=== PATIENT | male | born 1985 | race African-American/Black ===

== ENCOUNTER 2016-11-29 23:36 | Emergency (ER) | payer OTHER ==
[2016-11-29 23:46] VITALS: RESP 20
[2016-11-29] MEDS ORDERED: DIPH,PERTUS(ACELL)TETVAC-LF 0.5 ML VIAL IM ONE (23:56)
--- NOTE | 2016-11-30 00:05 | ED ---
Wound/Laceration HPI - General Chief Complaint: Wound/Laceration Stated Complaint: Finger Laceration Time Seen by Provider: 11/29/16 23:54 Source: patient, RN notes reviewed Mode of arrival: ambulatory Limitations: no limitations - History of Present Illness Initial Comments: Patient is 22-year-old male presents emergency department with chief complaint of laceration over his right middle finger. Patient reports that the laceration is over the proximal interphalangeal joint. He states that he cut his finger on it trying to close a switch blade. He states it got full range of motion of the finger. He does not know the status of his tetanus vaccination. He reports he is right-handed. Patient reports that he try to stop the bleeding at home however continue to persist especially that over the joint every time he opens and closes finger. Be evaluated patient does have a blood pressure of 210/110. Patient does report a family history of high blood pressure he denies any specific symptoms including headache or chest pain. He reports that his ever been diagnosed with high blood pressure. Patient denies any recent fever, chills, shortness of breath, chest pain, back pain, abdominal pain, nausea vomiting, numbness or tingling, dysuria or hematuria, constipation or diarrhea, headaches or visual changes, or any other current symptoms - Related Data Previous Rx's Medication Instructions Recorded amLODIPine [Norvasc] 5 mg PO DAILY #15 tab 11/30/16 Allergies Allergy/AdvReac Type Severity Reaction Status Date / Time No Known Allergies Allergy Verified 11/29/16 23:46 Review of Systems ROS Statement: Those systems with pertinent positive or pertinent negative responses have been documented in the HPI. ROS Other: All systems not noted in ROS Statement are negative. Past Medical History Past Medical History: No Reported History History of Any Multi-Drug Resistant Organisms: None Reported Past Surgical History: No Surgical Hx Reported Past Psychological History: No Psychological Hx Reported Smoking Status: Current every day smoker Past Alcohol Use History: Occasional Past Drug Use History: Marijuana General Exam - General Exam Comments Initial Comments: Patient is a well-appearing 30-year-old male. Limitations: no limitations General appearance: alert, in no apparent distress Head exam: Present: atraumatic, normocephalic, normal inspection Eye exam: Present: normal appearance, PERRL, EOMI. Absent: scleral icterus, conjunctival injection, periorbital swelling ENT exam: Present: normal exam, normal oropharynx, mucous membranes moist, TM's normal bilaterally Neck exam: Present: normal inspection. Absent: tenderness, meningismus, lymphadenopathy Respiratory exam: Present: normal lung sounds bilaterally. Absent: respiratory distress, wheezes, rales, rhonchi, stridor Cardiovascular Exam: Present: regular rate, normal rhythm, normal heart sounds. Absent: systolic murmur, diastolic murmur, rubs, gallop, clicks GI/Abdominal exam: Present: soft, normal bowel sounds. Absent: distended, tenderness, guarding, rebound, rigid Extremities exam: Present: normal inspection, full ROM, normal capillary refill. Absent: tenderness, pedal edema, joint swelling, calf tenderness Right Elbow exam: Present: normal inspection, full ROM Forearm Wrist exam: Present: normal inspection, full ROM Hand Wrist exam: Present: full ROM. Absent: normal inspection ( is a 1 cm laceration over the right middle proximal digit.) Hand L/R Back: 1 - laceration Back exam: Present: normal inspection Neurological exam: Present: alert, oriented X3, CN II-XII intact Psychiatric exam: Present: normal affect, normal mood Skin exam: Present: warm, dry, intact, normal color. Absent: rash Course Vital Signs 11/29/16 11/30/16 11/30/16 23:42 00:05 00:59 Temperature 97.6 F 96.8 F L 98.2 F Pulse Rate 84 88 88 Respiratory 20 20 20 Rate Blood Pressure 210/111 166/114 166/100 O2 Sat by Pulse 100 98 Oximetry Procedures - Laceration Laceration #1 Consent Obtained: verbal consent Site: hand (Over middle distal phalanx.) Size (cm): 1 Description: linear Depth: simple, single layer Anesthetic Used: benzocaine 0.25% Anesthesia Technique: local infiltration Pre-repair: wound explored Type of Sutures: nylon Size of Sutures: 5-0 Number of Sutures: 3 Technique: simple, interrupted Patient Tolerated Procedure: well, no complications Medical Decision Making - Medical Decision Making Patient is 30-year-old male presenting to the EC with chief complaint laceration over his right posterior distal middle finger after cutting it on a switch blade. He has full range of motion of the finger. Patient was given an updated tetanus vaccination. Patient is found to have a high blood pressure of 210/110. Patient has a positive family history for high blood pressure but denies it being diagnosed with a patient denies any specific complaints including vision changes, headache or chest pains. Patient was given 1 mg of Catapres. I advised patient needs follow-up with a primary care provider regards to his blood pressure , he promises to do so within the next week. Patient will be started on Norvasc. Patient was given3 sutures on the finger. Patient understands return parameters and to monitor for any signs of infection. Patient will follow up with primary care regards to remove the sutures as well as following up with his hypertension. Return parameters discussed. Patient understands treatment plan and will comply. Disposition Clinical Impression: Hypertension, Finger laceration Disposition: HOME SELF-CARE Condition: Good Instructions: Care For Your Stitches (ED), Hypertension (ED) Additional Instructions: Please return to the emergency room in 7-10 days to have sutures removed. Please leave wound covered for the first 24-48 hours and then leave open to air after that time. Please use clean soap and water to clean the suture area to prevent scabbing over the top of your sutures. Please watch for any signs of infection which may include but not limited to increased pain, swelling, redness , fever or chills. Please return to the emergency room if any signs of infection do occur. Please return to the emergency room for any other concerns or complications. Follow-up with primary care provider regards to high blood pressure. Take high blood pressure medication as prescribed for the next few days until little follow-up with primary care physician. Prescriptions: amLODIPine [Norvasc] 5 mg PO DAILY #15 tab Referrals: Eve Stahl MD [REFERRING] - 1-2 days Time of Disposition: 00:32
[2016-11-30] MEDS ORDERED: cloNIDine HCL 0.1 MG TAB PO STA (00:08)
[2016-11-30 00:53] VITALS: PULSE 88
[2016-11-30 01:01] VITALS: BP 166/100; TEMP 98.2
== END 2016-11-30 00:59 | disposition home or self-care (01) ==
LOC: EC 23:36
DX: S61.212A Laceration without foreign body of right middle finger without damage to nail, initial encounter (principal); I10 Essential (primary) hypertension; F17.200 Nicotine dependence, unspecified, uncomplicated; Z23 Encounter for immunization; W26.0XXA Contact with knife, initial encounter
CPT/HCPCS: 12001; 90471; 90715; 99282

== ENCOUNTER 2019-12-19 20:01 | Emergency (ER) | payer OTHER ==
[2019-12-19 20:17] VITALS: RESP 18; TEMP 98.6
[2019-12-19] MEDS ORDERED: KETOROLAC 60 MG/2 ML VIAL IM STA (21:26)
[2019-12-19] MEDS ORDERED: CYCLOBENZAPRINE 10 MG TAB PO STA (21:27)
--- NOTE | 2019-12-19 21:58 | XR ---
Cervical spine HISTORY: Neck pain 5 views of the cervical spine Cervical vertebral bodies show preserved height, alignment, and bone mineralization. There is multile barber spondylosis. Some loss of disc height present at the intervertebral levels C4-5, C5-6. Prevertebr al soft tissues are normal. Spinal curvature is noted in thoracic spine. Oblique images limited for e valuation for foraminal encroachment on the left, no foraminal encroachment noted on the right. Rudim entary cervical ribs noted at C7. IMPRESSION: Degenerative disc disease, scoliosis.
--- NOTE | 2019-12-19 22:27 | ED ---
Neck Injury/Pain HPI - General Chief Complaint: Neck Pain/Injury Stated Complaint: Neck pain Time Seen by Provider: 12/19/19 20:20 Mode of arrival: ambulatory Limitations: no limitations - History of Present Illness Initial Comments: The patient is a 33-year-old male with past medical history of hypertension who presents to the emergency room with reported neck pain. He states the pain has been present for the past week. He states he woke up one morning with the pain acutely. He thought that he had slept wrong however states that the pain has been persistent. It is midline neck pain at C7 which is worse with rotation of his head. He states he feels as if he needs to adjust his neck however he has been unable to do this. He denies any chiropractic manipulations. He denies any headaches or visual changes. No unilateral numbness or weakness. No radiating pain down into his extremities. He denies any blunt head or neck trauma. No recent falls or car accidents. He denies any fevers or chills. No history of IV drug use. There is no issues with confusion or slurred speech per friend at bedside. He has not taken any medications at home for his symptoms. There are no other alleviating, precipitating or modifying factors - Related Data Previous Rx's Medication Instructions Recorded amLODIPine [Norvasc] 5 mg PO DAILY #15 tab 11/30/16 Cyclobenzaprine [Flexeril] 10 mg PO TID PRN #15 tab 12/19/19 Ibuprofen [Motrin] 600 mg PO Q8HR PRN #20 tab 12/19/19 Allergies Allergy/AdvReac Type Severity Reaction Status Date / Time No Known Allergies Allergy Verified 11/29/16 23:46 Review of Systems ROS Statement: Those systems with pertinent positive or pertinent negative responses have been documented in the HPI. ROS Other: All systems not noted in ROS Statement are negative. Past Medical History Past Medical History: No Reported History History of Any Multi-Drug Resistant Organisms: None Reported Past Surgical History: No Surgical Hx Reported Past Psychological History: No Psychological Hx Reported Smoking Status: Current every day smoker Past Alcohol Use History: Occasional Past Drug Use History: Marijuana General Exam Limitations: no limitations General appearance: alert, in no apparent distress Head exam: Present: atraumatic, normocephalic, normal inspection Eye exam: Present: normal appearance, PERRL, EOMI. Absent: scleral icterus, conjunctival injection, periorbital swelling ENT exam: Present: normal exam, mucous membranes moist Neck exam: Present: tenderness (at c7) Respiratory exam: Present: normal lung sounds bilaterally. Absent: respiratory distress, wheezes, rales, rhonchi, stridor Cardiovascular Exam: Present: regular rate, normal rhythm, normal heart sounds. Absent: systolic murmur, diastolic murmur, rubs, gallop, clicks Extremities exam: Present: normal inspection, full ROM, normal capillary refill, other (equal wind up operator strength). Absent: tenderness, pedal edema, joint swelling, calf tenderness Neurological exam: Present: alert, oriented X3, CN II-XII intact Course Vital Signs 12/19/19 12/19/19 20:16 22:56 Temperature 98.6 F Pulse Rate 89 80 Respiratory 18 18 Rate Blood Pressure 136/86 116/78 O2 Sat by Pulse 99 100 Oximetry Medical Decision Making - Medical Decision Making Upon arrival the patient was placed into room 3. A thorough history and physical exam was performed. The patient does have tenderness to palpation of the C7 spinous process as well as the paraspinal muscles bilaterally. I did recommend an x-ray because of the patient's midline neck pain. He denies any recent trauma. There is no neurologic deficit. The patient was given a dose of Toradol and Flexeril. Cervical spine x-ray does demonstrate degenerative disc disease and scoliosis. There are rudimentary cervical ribs noted. I did reevaluate the patient he states that he has had great improvement in his pain. He feels comfortable going home at this time. I did provide the patient with a prescription for Flexeril and Motrin. He is taking his medications as directed on a full stomach. He is to use warm compresses to the site. He needs to follow up with his primary care doctor for further evaluation. Return to the emergency room for any new or worsening symptoms. The patient was in agreement with the treatment plan and he was discharged home in stable condition Disposition Clinical Impression: Cervical pain (neck) Disposition: HOME SELF-CARE Condition: Stable Instructions (If sedation given, give patient instructions): Cervical Strain (ED) Additional Instructions: Please follow-up with your primary care doctor in 2 to 4 days. Return to the emergency room for any new or worsening symptoms Prescriptions: Cyclobenzaprine [Flexeril] 10 mg PO TID PRN #15 tab PRN Reason: Muscle Spasm Ibuprofen [Motrin] 600 mg PO Q8HR PRN #20 tab PRN Reason: Pain Is patient prescribed a controlled substance at d/c from ED?: No Referrals: None,Stated [Primary Care Provider] - 1-2 days Carmina Tian DO [Doctor of Osteopathic Medicine] - 1-2 days Time of Disposition: 22:27
[2019-12-19 22:57] VITALS: BP 116/78; PULSE 80
== END 2019-12-19 22:57 | disposition home or self-care (01) ==
LOC: EC 20:01
DX: M50.30 Other cervical disc degeneration, unspecified cervical region (principal); M41.82 Other forms of scoliosis, cervical region; Q76.6 Other congenital malformations of ribs; I10 Essential (primary) hypertension; F17.200 Nicotine dependence, unspecified, uncomplicated
CPT/HCPCS: 96372; 99283; 72050; J1885

== ENCOUNTER 2023-10-12 18:21 | Emergency (ER) | payer OTHER ==
[2023-10-12 18:48] VITALS: TEMP 98.7
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
--- NOTE | 2023-10-12 19:48 | XR ---
EXAMINATION TYPE: XR ribs LT w pa chest xray DATE OF EXAM: 10/12/2023 7:02 PM CLINICAL INDICATION:Male, 37 years old with history of pain; COMPARISON: None TECHNIQUE: XR ribs LT w pa chest xray; Frontal and oblique views of the ribs with frontal chest radio graph. FINDINGS: The ribs have a normal appearance. No evidence of fracture. Overall, the lungs are clear. The cardiac silhouette is normal in size. The remaining osseous structures are intact. IMPRESSION: No acute osseous pathology.
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
[2023-10-12] MEDS ORDERED: CEPHALEXIN 500 MG CAP PO STA (23:48)
[2023-10-12] MEDS ORDERED: CEPHALEXIN 500MG STARTER PACK 4 CAP BTL PO STA (23:48)
[2023-10-13 00:25] VITALS: BP 186/124; PULSE 88; RESP 20
== END 2023-10-12 23:54 | disposition home or self-care (01) ==
LOC: EC 18:21
DX: S02.2XXA Fracture of nasal bones, initial encounter for closed fracture (principal); S02.31XA Fracture of orbital floor, right side, initial encounter for closed fracture; S20.219A Contusion of unspecified front wall of thorax, initial encounter; F17.200 Nicotine dependence, unspecified, uncomplicated; F12.90 Cannabis use, unspecified, uncomplicated; Y04.8XXA Assault by other bodily force, initial encounter
CPT/HCPCS: 70450; 70486; 72125; 99284

== ENCOUNTER 2024-04-17 21:53 | Emergency (ER) | payer OTHER ==
[2024-04-17 22:56] VITALS: RESP 18; TEMP 98.6
--- NOTE | 2024-04-17 23:13 | ED ---
General Adult HPI - General Source: patient, RN notes reviewed Mode of arrival: ambulatory Limitations: no limitations <Jennifer Ayala - Last Filed: 04/17/24 23:12> - General Source: patient, RN notes reviewed, old records reviewed <Owen Perdue - Last Filed: 04/18/24 04:40> - General Chief complaint: Urogenital Stated complaint: Urethral Discharge Time Seen by Provider: 04/17/24 23:09 - History of Present Illness Initial comments: Quick note: 38-year-old male presents to the emergency department for evaluation of urethral discharge. Patient notes symptoms have been going on since . He reports that the discharge is green. Patient concerned for STDs. (Jennifer Ayala) Patient presents for evaluation for STD. Originally seen as a quick note. Has been having green discharge from his urethra since . No known exposures to STDs. Denies fevers or chills. States he has a burning sensation when he urinates as well. Denies any other acute complaints at this time. Presents for further evaluation. Urinalysis and urine STD testing was obtained while patient was in triage as a quick note. I evaluated him when he was placed in a hallway bed. (Owen Perdue) - Related Data Previous Rx's Medication Instructions Recorded amLODIPine [Norvasc] 5 mg PO DAILY #15 tab 11/30/16 Cyclobenzaprine [Flexeril] 10 mg PO TID PRN #15 tab 12/19/19 Ibuprofen [Motrin] 600 mg PO Q8HR PRN #20 tab 12/19/19 Cephalexin [Keflex] 500 mg PO Q6HR #40 cap 10/12/23 Doxycycline [Vibramycin] 100 mg PO BID 14 Days #28 capsule 04/18/24 Allergies Allergy/AdvReac Type Severity Reaction Status Date / Time No Known Allergies Allergy Verified 10/12/23 18:36 Review of Systems ROS Other: All systems not noted in ROS Statement are negative. <Jennifer Ayala - Last Filed: 04/17/24 23:12> ROS Other: All systems not noted in ROS Statement are negative. <Owen Perdue - Last Filed: 04/18/24 04:40> ROS Statement: Those systems with pertinent positive or pertinent negative responses have been documented in the HPI. Review of Systems: CONST: Denies fever EYES: Denies blurry vision ENT: Denies nasal congestion C/V: Denies Chest pain RESP: Denies shortness of breath GI: Denies abdominal pain : Endorses dysuria SKIN: Denies rash. MSK: Denies joint pain. NEURO: Denies headache (Owen Perdue) Past Medical History Past Medical History: No Reported History History of Any Multi-Drug Resistant Organisms: None Reported Past Surgical History: No Surgical Hx Reported Past Psychological History: No Psychological Hx Reported Smoking Status: Current every day smoker Past Alcohol Use History: Occasional Past Drug Use History: Marijuana <Jennifer Ayala - Last Filed: 04/17/24 23:12> General Exam Limitations: no limitations <Jennifer Ayala - Last Filed: 04/17/24 23:12> <Owen Perdue - Last Filed: 04/18/24 04:40> - General Exam Comments Initial Comments: Visual Physical Exam Vital signs reviewed General: Well-appearing, nontoxic, no acute distress. Head: Normocephalic, atraumatic Eyes: PERRLA, EOMI ENT: Airway patent Chest: Nonlabored breathing Skin: No visual rash, normal skin tone Neuro: Alert and oriented 3 Musculoskeletal: No gross abnormalities (Jennifer Ayala) General: Appears in no acute distress. HEAD: Normal with no signs of head trauma. EYES: EOMI. ENT: Hearing grossly intact. RESPIRATORY: No respiratory distress. C/V: Regular rate and rhythm. ABD: Abdomen is nondistended. EXT: No obvious deformity. SKIN: No rashes or lesions observed on exposed skin. NEURO: Alert and oriented. (Owen Perdue) Course Vital Signs 04/17/24 04/18/24 22:26 01:18 Temperature 98.6 F Pulse Rate 87 79 Respiratory 18 18 Rate Blood Pressure 186/127 169/89 O2 Sat by Pulse 100 98 Oximetry Medical Decision Making <Jennifer Ayala - Last Filed: 04/17/24 23:12> <Owen Perdue - Last Filed: 04/18/24 04:40> - Medical Decision Making Quick note performed and electronically signed by Jennifer Ayala PA-C (Jennifer Ayala) Was pt. sent in by a medical professional or institution ([facility], [facility] [employer], urgent care, hospital, or care home...) When possible be specific @ -No Did you speak to anyone other than the patient for history (EMS, parent, family, police, friend...)? What history was obtained from this source @ -No Did you review nursing and triage notes (agree or disagree)? Why? @ -I reviewed and agree with nursing and triage notes Were old charts reviewed (outside hosp., previous admission, EMS record, old EKG , old radiological studies, urgent care reports/EKG's, care home records)? Report findings @ -No old charts were reviewed Differential Diagnosis (chest pain, altered mental status, abdominal pain women, abdominal pain men, vaginal bleeding, weakness, fever, dyspnea, syncope, headache, dizziness, GI bleed, back pain, seizure, CVA, palpatations, mental health, musculoskeletal)? @ -STD, UTI. This list is not all inclusive. EKG interpreted by me (3pts min.). @ -None done X-rays interpreted by me (1pt min.). @ -None done CT interpreted by me (1pt min.). @ -None done U/S interpreted by me (1pt. min.). @ -None done What testing was considered but not performed or refused? (CT, X-rays, U/S, labs)? Why? @ -None What meds were considered but not given or refused? Why? @ -None Did you discuss the management of the patient with other professionals (professionals i.e. , PA, [employer], lab, RT, psych nurse, social media marketing manager, associate professor of physics, teacher, chief safety officer, caseworker intake)? Give summary @ -No Was smoking cessation discussed for >3mins.? @ -No Was critical care preformed (if so, how long)? @ -No Were there social determinants of health that impacted care today? How? (Homelessness, low income, unemployed, alcoholism, drug addiction, transportation, low edu. Level, literacy, decrease access to med. care, fdc, rehab)? @ -No Was there de-escalation of care discussed even if they declined (Discuss DNR or withdrawal of care, Hospice)? DNR status @ -No What co-morbidities impacted this encounter? (DM, HTN, Smoking, COPD, CAD, Cancer, CVA, ARF, Chemo, Hep., AIDS, mental health diagnosis, sleep apnea, morbid obesity)? @ -None Was patient admitted / discharged? Hospital course, mention meds given and route, prescriptions, significant lab abnormalities, going to OR and other pertinent info. @ -Presents with symptoms concerning for urethritis likely secondary to STD. Urine studies obtained for STD testing and sent. These are pending. I did offer prophylactic therapy as patient is having symptoms and he was in agreement this plan. He will receive IM Rocephin, oral Flagyl, and be started on doxycycline for 2 weeks. Patient was in agreement this plan. Vital signs within acceptable limits. I will provide the patient with a prescription for doxycycline. I instructed the patient to follow up with their PCP in the next 1-3 days.. I explained that the patient should return to the emergency department if they experience any worsening symptoms. Strict return precautions were discussed with the patient. The patient expressed understanding of these instructions. I answered all questions that the patient had. The patient was discharged home in good condition with their prescriptions and follow up information. Undiagnosed new problem with uncertain prognosis? @ -No Drug Therapy requiring intensive monitoring for toxicity (Heparin, Nitro, Insulin, Cardizem)? @ -No Were any procedures done? @ -No Diagnosis/symptom? @ -STD exposure, urethritis Acute, or Chronic, or Acute on Chronic? @ -Acute Uncomplicated (without systemic symptoms) or Complicated (systemic symptoms)? @ -Uncomplicated Side effects of treatment? @ -No Exacerbation, Progression, or Severe Exacerbation? @ -No Poses a threat to life or bodily function? How? (Chest pain, [place], NH, pneumonia, PE, COPD, DKA, ARF, appy, cholecystitis, CVA, Diverticulitis, Homicidal, Suicidal, threat to staff... and all critical care pts) @ -Unlikely (Owen Perdue) - Lab Data Lab Results 04/17/24 Range/Units 22:52 Urine Color Yellow Urine Appearance Clear (Clear) Urine pH 6.5 (5.0-8.0) Ur Specific [place] 1.030 (1.001-1.035) Urine Protein Trace H (Negative) Urine Glucose (UA) Negative (Negative) Urine Ketones 1+ H (Negative) Urine Blood Trace H (Negative) Urine Nitrite Negative (Negative) Urine Bilirubin Negative (Negative) Urine Urobilinogen 6.0 (<2.0) mg/dL Ur Leukocyte Esterase Moderate H (Negative) Urine RBC 9 H (0-5) /hpf Urine WBC 39 H (0-5) /hpf Ur Squamous Epith Cells <1 (0-4) /hpf Urine Mucus Few H (None) /hpf Disposition <Jennifer Ayala - Last Filed: 04/17/24 23:12> Is patient prescribed a controlled substance at d/c from ED?: No Time of Disposition: 00:58 <Owen Perdue - Last Filed: 04/18/24 04:40> Clinical Impression: Exposure to STD, Urethritis Disposition: HOME SELF-CARE Condition: Good Instructions (If sedation given, give patient instructions): Sexually Transmitted Diseases (ED), Safe Sex Practices (ED) Prescriptions: Doxycycline [Vibramycin] 100 mg PO BID 14 Days #28 capsule Referrals: None,Stated [Primary Care Provider] - 1-2 days
[2024-04-17 23:29] LABS: Appearance,Urine Clear (Clear); Bilirubin,Urine Negative (Negative); Blood,Urine Trace (Negative); Color,Urine Yellow; Glucose,Urine (UA) Negative (Negative); Ketones,Urine 1+ (Negative); Leukocyte Esterase,Urine Moderate (Negative); Mucus,Urine Few /hpf; Nitrite,Urine Negative (Negative); PH, Urine 6.5 (5.0-8.0); Protein,Urine Trace (Negative); RBC,Urine 9 /hpf (0-5); Squamous Epithelial Cell,Urine <1 /hpf (0-4); WBC,Urine 39 /hpf (0-5)
[2024-04-18] MEDS: cefTRIAXone 250 MG VIAL IM STA (01:14)
[2024-04-18] MEDS: metroNIDAZOLE 500 MG TAB PO STA (01:15)
[2024-04-18] MEDS: DOXYCYCLINE 100 MG CAP PO STA (01:15)
[2024-04-18 01:56] VITALS: BP 169/89; PULSE 79
== END 2024-04-18 01:19 | disposition home or self-care (01) ==
LOC: EC 21:53
DX: R36.9 Urethral discharge, unspecified (principal); N34.2 Other urethritis; Z20.2 Contact with and (suspected) exposure to infections with a predominantly sexual mode of transmission
CPT/HCPCS: 81001; 87086; 87491; 87591; 96372; 99283